=== PATIENT | male | born 1965 | race Caucasian/White ===

== ENCOUNTER 2018-04-22 07:57 | Emergency (ER) | payer OTHER, SELFPAY ==
[2018-04-22 08:44] LABS: #Basophils 0.1 thou/uL (0.0-0.2); #Eosinphils 0.2 thou/uL (0.0-0.7); #Lymphocytes 1.6 thou/uL (1.20-3.40); #Monocytes 0.6 thou/uL (0.11-0.59); #Neutrophils 4.6 thou/uL (1.40-6.50); %Eosinophils 2.5 % (0.0-10.0); %Lymphocytes 22.7 % (21.0-51.0); %Monocytes 8.1 % (0.0-10.0); %Neutrophils 65.7 % (42.0-75.0); Hemoglobin 17.5 g/dL (14.0-18.0); Mean Corpuscular HGB CONC 34.7 g/dL (32.0-36.0); Mean Corpuscular Hemoglobin 31.5 pg (27.0-31.0); Mean Corpuscular Volume 90.6 fL (78.0-98.0); Mean Platelet Volume 6.8 fL (7.4-10.4); Platelet Count 252 thou/uL (130-400); RBC Distribution Width 12.6 % (11.5-14.5); Red Blood Cell (RBC) Count 5.57 mill/uL (4.70-6.10)
[2018-04-22 08:49] LABS: ALT (SGPT) 35 U/L (8-55); AST (SGOT) 20 U/L (5-34); Albumin 4.6 g/dL (3.5-5.0); Alkaline Phosphatase 77 U/L (40-150); Anion Gap 12 mmol/L (10-20); BUN (Urea Nitrogen) 14 mg/dL (8.4-25.7); Bilirubin, Total 0.4 mg/dL (0.2-1.2); CK (CPK) 95 U/L (30-200); Calc. Creatinine Clearance 0 mL/min (70-130); Calcium 10.1 mg/dL (7.8-10.44); Carbon Dioxide 26 mmol/L (22-29); Chloride 106 mmol/L (98-107); Estimated GFR-MDRD Greater than 90; Globulin 2.8 g/dL (2.4-3.5); Glucose 145 mg/dL (70-105); Potassium 3.8 mmol/L (3.5-5.1); Protein, Total 7.4 g/dL (6.0-8.3); Sodium 140 mmol/L (136-145)
[2018-04-22 08:53] LABS: CKMB 1.9 ng/mL (0-6.6); Troponin I Less than 0.010 ng/mL (< 0.028)
--- NOTE | 2018-04-22 09:28 | RAD ---
CHEST ONE VIEW: HISTORY: A 52-year-old male with a history of chest pain. Supposedly elevated blood pressure. FINDINGS: Heart size is within normal limits. Lungs are clear of acute process. No pneumonia, edema, or pleur al effusion. There are some symmetric mild increased markings bilaterally. IMPRESSION: Symmetric mild increased markings bilaterally, probably chronic. No confluent pneumonia or other acu te process. Atherosclerosis of the aorta. POS: [facility]
== END 2018-04-22 09:18 | disposition home or self-care (01) ==
LOC: ERS 07:57
DX: I10 Essential (primary) hypertension (principal); Z71.6 Tobacco abuse counseling; E78.5 Hyperlipidemia, unspecified; F41.9 Anxiety disorder, unspecified; F17.200 Nicotine dependence, unspecified, uncomplicated
CPT/HCPCS: 36415; 71045; 80053; 82550; 82553; 84484; 85025; 93005; 99406